=== PATIENT | female | born 1945 | race Caucasian/White ===

== ENCOUNTER → 2018-05-18 | Outpatient (CLI) | payer MEDICARE, OTHER ==
[~2018-05-18] MED LIST: ACULAR OPHTHALMI5 ML OS; CEPHALEXIN500 M1 PO; CO Q-1050 MG PO; COZAAR 50MG50 MG/TAB PO; LEXAPRO 10MG10 MG PO; LIPITOR 80MG80 MG PO; MOBIC 7.5MG7.5 MG PO; MULTIPLE VITAMI1 CAP PO; NORVASC 10MG10 MG PO; PRED FORTE 1 ML1 ML OS; PROAIR HFA0.09 MG/AC IH
[2018-05-18 11:59] LABS: HEMATOCRIT 44.8 % (37.0-47.0); HEMOGLOBIN 15.4 g/dl (12.5-16.0); MEAN CELL VOLUME 88 fl (80.0-100.0); MEAN CORPUSCULAR HEMOGLOBIN 30 pg (27.0-31.0); MEAN CORPUSCULAR HGB CONC 34 g/dl (33.0-37.0); MEAN PLATELET VOLUME 9.4 fl (7.4-10.4); PLATELET COUNT 241 K/mm3 (130-400); RED BLOOD COUNT 5.11 M/mm3 (4.10-5.30)
[2018-05-18 12:05] LABS: INR 1.1 (0.8-3.0); PROTHROMBIN TIME 12.3 SECONDS (9.7-12.8)
[2018-05-18 12:09] LABS: CREATININE, serum 0.58 mg/dL (0.52-1.25); POTASSIUM 4.7 mmol/L (3.4-5.0)
== END ==
LOC: COL.LAB 11:34
PROVIDERS: Internal Medicine Interventional Cardiology
DX: Z95.0 Presence of cardiac pacemaker (principal)

== ENCOUNTER 2021-08-16 04:59 | Emergency (ER) | payer MEDICARE ==
[~2021-08-16] VITALS: Ht 152.4 cm; Wt 97.3 kg
[2021-08-16 05:05] VITALS: BP 175/75; PULSE 92; TEMP 97.8
[2021-08-16] MEDS ORDERED: NORCO 325 MG-51 TAB PO (05:36)
[2021-08-16] MEDS ORDERED: COLACE 100100 MG/CAP PO (05:36)
== END 2021-08-16 05:45 | disposition home or self-care (01) ==
LOC: COL.ER 04:59
DX: D17.21 Benign lipomatous neoplasm of skin and subcutaneous tissue of right arm (principal); I10 Essential (primary) hypertension; Z79.899 Other long term (current) drug therapy